=== PATIENT | female | born 1995 | race Caucasian/White ===

== ENCOUNTER 2019-12-23 03:29 | Outpatient (CLI) | payer SELFPAY | END 2019-12-23 03:30 | disposition EMS.NT | LOC: EMS 03:29 | PROVIDERS: ATTEND Surgery | DX: R10.13 Epigastric pain (principal); R06.4 Hyperventilation ==

== ENCOUNTER 2020-09-10 15:19 | Emergency (ER) | payer OTHER ==
[2020-09-10 16:02] LABS: BASOPHILS % (AUTO) 0.3 %; EOSINOPHILS # (AUTO) 0.1 10^3/uL (0.0-0.7); EOSINOPHILS % (AUTO) 0.6 %; HGB - HEMOGLOBIN 13.5 g/dL (12.0-16.0); LYMPHOCYTES # (AUTO) 1.5 10^3/uL (1.5-3.5); LYMPHOCYTES % (AUTO) 15.8 %; MEAN CORPUSCULAR HEMOGLOBIN 27.8 pg (27.0-31.0); MEAN CORPUSCULAR HGB CONC 32.6 g/dL (32.0-36.0); MEAN CORPUSCULAR VOLUME 85.4 fL (81.0-99.0); MEAN PLATELET VOLUME 9.8 fL (7.9-10.8); MONOCYTES # (AUTO) 0.4 10^3/uL (0.0-1.0); MONOCYTES % (AUTO) 3.7 %; NEUTROPHILS # (AUTO) 7.6 10^3/uL (1.5-6.6); NEUTROPHILS % (AUTO) 79.1 %; PLT - PLATELET COUNT 229 10^3/uL (130-450); RED BLOOD COUNT 4.85 10^6/uL (4.20-5.40); RED CELL DISTRIBUTION WIDTH 13.1 % (12.0-15.0); WHITE BLOOD COUNT 9.6 x10^3/uL (4.8-10.8)
--- NOTE | 2020-09-10 16:03 | ED Physician Documentation ---
History of Present Illness - Stated complaint Stated Complaint: ABD PX,BLEEDING - Chief complaint Chief Complaint: Abd Pain - History obtained from History obtained from: Patient - History of Present Illness Timing: Prior to arrival - Additonal information Additional information: 25-year-old female presents to the emergency department for evaluation of acute lower abdominal pain as well as vaginal spotting. She is unsure if she is . Reports last menstrual period of 08/22/2020. She states that however that menstrual episode was very shortened. This a.m. she noted that she was having light pink vaginal spotting (she noticed after voiding when the pain began) and therefore she is concerned that she may be early or miscarrying. She reports the pain as constant and sharp in nature. It started in the right flank area and radiated to the lower abdomen. Denies any previous surgical history. No fevers or vomiting. Denies dysuria urgency or frequency. she does have a hx of renal stones in the past Review of Systems Constitutional: denies: Fever, Chills Eyes: reports: Reviewed and negative Ears: reports: Reviewed and negative Nose: reports: Reviewed and negative Throat: reports: Reviewed and negative Cardiac: reports: Reviewed and negative Respiratory: reports: Reviewed and negative GI: reports: Abdominal Pain. denies: Nausea, Vomiting : reports: Irregular menses (lmp 08/22/20). denies: Dysuria, Frequency, Hesitancy Skin: reports: Reviewed and negative Musculoskeletal: reports: Reviewed and negative PD PAST MEDICAL HISTORY - Present Medications Home Medications: Ambulatory Orders Medication Instructions Recorded Confirmed Ibuprofen [Motrin] 600 mg PO Q6H PRN #30 tab 09/10/20 - Allergies Allergies/Adverse Reactions: Allergies Allergy/AdvReac Type Severity Reaction Status Date / Time codeine Allergy Anaphylaxis Verified 09/10/20 15:41 PD ED PE NORMAL - General General: Alert and oriented X 3, No acute distress - Neck Neck: Supple, no meningeal sign, No adenopathy - Cardiac Cardiac: RRR, No murmur - Respiratory Respiratory: No respiratory distress, Clear bilaterally - Abdomen Abdomen: Normal bowel sounds, Soft. No: Non tender (Nonfocal tenderness lower abdomen. Negative for guarding or rebound. 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 Eye Opening: Spontaneous Motor: Obeys Commands Verbal: Oriented GCS Score: 15 Results - Vitals Vitals: Vital Signs - 24 hr 09/10/20 15:39 Temperature 37.1 C Heart Rate 104 H Respiratory 16 Rate Blood Pressure 124/88 H O2 Saturation 99 Oxygen O2 Source Room air - Labs Labs: Laboratory Tests 09/10/20 09/10/20 09/10/20 15:30 15:30 15:30 WBC 9.6 RBC 4.85 Hgb 13.5 Hct 41.4 MCV 85.4 MCH 27.8 MCHC 32.6 RDW 13.1 Plt Count 229 MPV 9.8 Neut # (Auto) 7.6 H Lymph # (Auto) 1.5 [place] # (Auto) 0.4 Eos # (Auto) 0.1 Baso # (Auto) 0.0 Absolute Nucleated RBC 0.00 Nucleated RBC % 0.0 Sodium 139 Potassium 3.6 Chloride 96 L Carbon Dioxide 25 Anion Gap 18.0 H BUN 11 Creatinine 1.0 Estimated GFR (MDRD) 69 L Glucose 115 H Calcium 10.4 H Total Bilirubin 0.9 AST 20 ALT 14 Alkaline Phosphatase 74 Total Protein 8.8 H Albumin 4.9 Globulin 3.9 Albumin/Globulin Ratio 1.3 Lipase 33 HCG, Quant 1.88 Urine Color Urine Clarity Urine pH Ur Specific [place] Urine Protein Urine Glucose (UA) Urine Ketones Urine Occult Blood Urine Nitrite Urine Bilirubin Urine Urobilinogen Ur Leukocyte Esterase Urine RBC Urine WBC Ur Squamous Epith Cells Urine Bacteria Ur Microscopic Review Urine Culture Comments Urine HCG, Qual 09/10/20 16:14 WBC RBC Hgb Hct MCV MCH MCHC RDW Plt Count MPV Neut # (Auto) Lymph # (Auto) [place] # (Auto) Eos # (Auto) Baso # (Auto) Absolute Nucleated RBC Nucleated RBC % Sodium Potassium Chloride Carbon Dioxide Anion Gap BUN Creatinine Estimated GFR (MDRD) Glucose Calcium Total Bilirubin AST ALT Alkaline Phosphatase Total Protein Albumin Globulin Albumin/Globulin Ratio Lipase HCG, Quant Urine Color YELLOW Urine Clarity HAZY Urine pH 6.5 Ur Specific [place] 1.015 Urine Protein 100 H Urine Glucose (UA) NEGATIVE Urine Ketones NEGATIVE Urine Occult Blood LARGE H Urine Nitrite NEGATIVE Urine Bilirubin NEGATIVE Urine Urobilinogen 0.2 (NORMAL) Ur Leukocyte Esterase NEGATIVE Urine RBC TNTC H Urine WBC 0-3 Ur Squamous Epith Cells FEW Squamous Urine Bacteria Few Ur Microscopic Review INDICATED Urine Culture Comments NOT INDICATED Urine HCG, Qual NEGATIVE - Rads (name of study) CT abd wo Radiology: Final report received (Mild right-sided hydronephrosis and hydroureter. Mild right perinephric fat stranding. No obstructing renal stone or ureter stone is identified. No calcified bladder stone. Finding may represent a passed right-sided renal stone. Mild constipation. Appendix normal.) PD MEDICAL DECISION MAKING - ED course Complexity details: reviewed results, re-evaluated patient, considered differential, d/w patient ED course: 25-year-old female presents to the emergency department for evaluation of right flank pain. She also developed vaginal bleeding this a.m. that was irregular for her menses. Reassuringly she is not . Given the location of the pain and the findings of blood in the urine we did proceed with a CT of the abdomen without contrast to look for renal stones and hydronephrosis. CT scan does show mild right-sided hydronephrosis and hydroureter. There is a little bit of perinephric fat standing. This likely represents a passed stone. Her appendix is normal. There is no findings of infection in the urine. I will refer her to urology for follow-up. Will recommend ibuprofen for analgesia. Emergent return precautions discussed Departure - Departure Disposition: 01 Home, Self Care Clinical Impression: Hydroureter, right Hydronephrosis Qualifiers: Hydronephrosis type: other Qualified Code(s): N13.39 - Other hydronephrosis Condition: Stable Record reviewed to determine appropriate education?: Yes Instructions: ED Stone Renal Passed Follow-Up: Cb Power MD [Provider Admit Priv/Credential] - Prescriptions: Ibuprofen [Motrin] 600 mg PO Q6H PRN #30 tab PRN Reason: Pain Comments: Micki you were seen today in the emergency department for right flank pain. You are not . There is a moderate amount of blood in your urine. The CT scan shows that there was a little bit of swelling of the right kidney and right ureter. This likely means that you are passing a kidney stone and that is the cause of your pain as well as the pink that you noticed after wiping. Please call Dr. Power in [place] to arrange follow-up of this ED visit. I would like you to take ibuprofen as prescribed for pain. If you develop fevers, have worsening pain, have any concerns of a urinary infection then please return immediately to the ER
[2020-09-10 16:18] LABS: ALBUMIN 4.9 g/dL (3.2-5.5); ALBUMIN/GLOBULIN RATIO 1.3 (1.0-2.2); BILIRUBIN,TOTAL 0.9 mg/dL (0.2-1.0); CALCIUM 10.4 mg/dL (8.5-10.3); TOTAL PROTEIN 8.8 g/dL (6.7-8.2)
[2020-09-10 16:23] LABS: BILIRUBIN,URINE NEGATIVE (NEGATIVE); GLUCOSE, URINE (UA) NEGATIVE (NEGATIVE); KETONES,URINE (UA) NEGATIVE (NEGATIVE); LEUKOCYTE ESTERASE, URINE NEGATIVE (NEGATIVE); NITRITE,URINE NEGATIVE (NEGATIVE); OCCULT BLOOD,URINE LARGE (NEGATIVE); PH,URINE 6.5 PH (5.0-7.5); PROTEIN,URINE 100 mg/dL (NEGATIVE); UROBILINOGEN,URINE 0.2 (NORMAL) E.U./dL (NORMAL)
[2020-09-10 16:29] LABS: CLARITY,URINE HAZY (CLEAR); HCG UR QUAL NEGATIVE
[2020-09-10 16:34] LABS: RBC,URINE TNTC /HPF (0-5); SQUAMOUS EPITHELIAL CELL,UR FEW Squamous (<= Few)
[2020-09-10 16:35] LABS: BACTERIA,URINE Few /HPF (None Seen)
--- NOTE | 2020-09-10 17:14 | CT Report ---
PROCEDURE: Abdomen/Pelvis WO INDICATIONS: right flank pain; r/o nephrolithiasis TECHNIQUE: Noncontrast 5 mm thick sections acquired from the diaphragms to the symphysis. 5 mm coronal and sagi ttal reformats were then performed. For radiation dose reduction, the following was used: automated exposure control, adjustment of mA and/or kV according to patient size. COMPARISON: None. FINDINGS: Image quality: Excellent. ABDOMEN: Lung bases: Lung bases are clear. Heart size is normal. Solid organs: Liver and spleen are normal in size. Gallbladder is within normal limits Pancreas is normal in contours. No adrenal nodules. Kidneys are normal in size mild prominence of right renal collecting system and right renal pelvis is seen. Prominent proximal to mid right ureter is also note d. There is mild right perinephric fat stranding. No renal stone or definite ureteral stone is seen. Small phlebolith is noted in posterior right lower pelvis. There is no left-sided renal stone or domonique nephric fat stranding. Left ureter is within normal limits. Peritoneum and bowel: Unenhanced bowel loops demonstrate normal wall thickness and caliber. No free fluid or air. Mild fecal stasis throughout the colon is seen extending to the rectum. Appendix is v isualized and is within normal limits. Nodes and vessels: No retroperitoneal or mesenteric adenopathy by size criteria. Aorta and inferior vena cava are normal in caliber. Miscellaneous: No ventral hernias. PELVIS: Genitourinary: Bladder wall thickness is normal. No calcified bladder stone is seen. Miscellaneous: No inguinal hernias or adenopathy. Bones: No suspicious bony lesions. No vertebral body compression fractures. IMPRESSION: 1. Mild right-sided hydronephrosis and hydroureter. Mild right perinephric fat stranding. No obstruct ing renal stone or ureteral stone is identified. No calcified bladder stone. Finding may represent a passed right-sided renal stone. No left-sided hydronephrosis or perinephric fat stranding. Normal lucero dder wall thickness. 2. Mild constipation. No bowel obstruction. No abnormal bowel wall thickening. Normal appendix. No fr ee fluid of free air. Reviewed by: Sudeep Dela Cruz MD on 09/10/2020 5:13 PM PST Approved by: Sudeep Dela Cruz MD on 09/10/2020 5:13 PM PST Station ID: [id number]
[2020-09-10 17:51] VITALS: BP 116/60
== END 2020-09-10 17:51 | disposition home or self-care (01) ==
LOC: ED 15:19
DX: N13.30 Unspecified hydronephrosis (principal); Z87.442 Personal history of urinary calculi; Z32.02 Encounter for pregnancy test, result negative
CPT/HCPCS: 36415; 74176; 80053; 81001; 81003; 81025; 83690; 84702; 85025; 87086; 99284